=== PATIENT | female | born 1950 | race Caucasian/White ===

== ENCOUNTER → 2017-01-11 | Outpatient (CLI) | payer OTHER ==
[~2017-01-11] MED LIST: ALDACTONE25 MG PO; ASPIRIN ENTERI325 M1 PO; AUGMENTIN875 M1 PO; CELEXA PO; COMBIVENT RESPIM4 GM IH; COZAAR PO; DEMADEX10 MG PO; FAMCICLOVIR500 MG PO; FLEXERIL10 MG PO; FLONASE 0.05% N16 G1; GLUCOVANCE PO; GLYBURIDE-METFO1 TA3 PO; HUMALOG100 U/M1 SQ; KEFLEX500 MG PO; LEVEMIR SUBQ; LIDO PATCH; LIPITOR20 MG PO; LISINOPRIL PO; MACROBID100 M1 PO; NORCO1 TAB 10/3 PO; NORVASC PO; NOVOLOG100 U/M1 SUBQ; OCUFLOX10 ML OD; RYTHMOL PO; SPIRIVA18 MCG PO; SYNTHROID PO; VICODIN 5/500 T1 TAB PO; ZOLOFT50 MG PO
[2017-01-11 11:58] LABS: URINE APPEARANCE CLEAR; URINE BILIRUBIN NEG (NEG); URINE BLOOD NEG (NEG); URINE COLOR YELLOW; URINE GLUCOSE 100 MG/DL (NORM); URINE KETONE NEG (NEG); URINE LEUKOCYTE ESTERASE NEG (NEG); URINE NITRATE NEG (NEG); URINE PROTEIN 3+ (NEG); URINE SOURCE CLEAN CATCH; URINE SPECIFIC GRAVITY 1.015 (1.003-1.035); URINE UROBILINOGEN NORM (NORM)
[2017-01-11 12:46] LABS: BUN/CREATININE RATIO 15.33; CALCIUM SERUM 8.5 mg/dL (8.4-10.2); GLOM FILT RATE Estimated 15.5 mL/min (>60)
[2017-01-11 12:51] LABS: POTASSIUM 5.6 mmol/L (3.5-5.1)
[2017-01-11 21:22] LABS: CREATININE,RANDOM URINE 57 mg/dL; TOTAL PROTEIN,RANDOM URINE 366 mg/dl (<10)
== END | disposition home or self-care (01) ==
LOC: CLAB 10:48
PROVIDERS: Internal Medicine Nephrology
DX: N18.3 Chronic kidney disease, stage 3 (moderate) (principal)
CPT/HCPCS: 36415; 80048; 81003; 82570; 84156

== ENCOUNTER → 2017-01-15 | Outpatient (CLI) | payer OTHER ==
[2017-01-15 12:12] LABS: BUN/CREATININE RATIO 12.33; CALCIUM SERUM 9.2 mg/dL (8.4-10.2); GLOM FILT RATE Estimated 15.5 mL/min (>60); POTASSIUM 5.3 mmol/L (3.5-5.1)
== END | disposition home or self-care (01) ==
LOC: CLAB 09:38
PROVIDERS: Internal Medicine Nephrology
DX: N18.3 Chronic kidney disease, stage 3 (moderate) (principal)
CPT/HCPCS: 36415; 80048

== ENCOUNTER → 2017-02-14 | Outpatient (CLI) | payer OTHER ==
--- NOTE | ~2017-02-14 | US77 ---
[facility] A Service of [facility] & [facility] RADIOLOGY TEXT RESULTS PATIENT: REMI CHRISTY LOCATION: [facility] : 50 UNIT #: [id number] AGE: [address]: Zeb Feng MD SEX: F ORDER DR: [id number] [facility] [address] [place], [place] [address] [id number] O MR#: [id number] Acc #: [id number] NAME: REMI CHRISTY : 1950 SEX: F STUDY DATE/TIME: 02/14/2017 13:03 UNIT: [facility] ROOM: STUDY DESCRIPTION: US Kidney Bilateral Complete Attending Physician: Zeb Feng M.D. Referring Physician: Zeb Feng M.D. Ordering Physician: Zeb Feng M.D. Primary Care Physician: Flor Mukherjee M.D. MEDICAL IMAGING REPORT This report is preliminary unless electronic signature is present EXAM Renal ultrasound. INDICATIONS Chronic kidney disease stage III. TECHNIQUE Jay-scale and color Doppler sonographic images were obtained through the kidneys and bladder. FINDINGS Right kidney measures 7.5 x 4.4 x 3.8 cm, it is echogenic. No obvious hydronephrosis is seen, presence or absence of masses is really not possible on this limited study. There is limited visualization of the bladder; assessment of wall thickness is not possible. Left kidney measures 6.8 x 4.3 x 4.1 cm and I think is probably also echogenic. Again, no hydronephrosis is seen, no obvious masses are identified, but again this is a technically limited study. IMPRESSION Atrophic, echogenic kidneys likely reflecting underlying chronic medical renal disease. No obvious hydronephrosis identified. Please note this is a very technically limited examination with limited views of the bladder and both kidneys. Dictated by... Chloé Chavez M.D. THIS IS AN ELECTRONICALLY VERIFIED REPORT Chloé Chavez M.D. at 02/15/2017 2:45 PM AFF/psc [facility] A Service of [facility] & [facility] RADIOLOGY TEXT RESULTS PATIENT: REMI CHRISTY LOCATION: [facility] : 50 UNIT #: [id number] AGE: [address]: Zeb Feng MD SEX: F ORDER DR: TD: 02/15/2017 08:39 JOB #: [id number] MEDICAL IMAGING REPORT Page 1 of 1 COPY
[2017-02-14 13:51] LABS: BASOPHIL# 0.1 X10e3 (0-0.3); BASOPHIL% 0.8 % (0-2.5); EOSINOPHIL# 0.1 X10e3 (0-0.7); EOSINOPHIL% 1.3 % (0.0-7.0); HEMATOCRIT 35.5 % (35.0-45.0); HEMOGLOBIN 11.5 gm/dL (12.0-16.0); LYMPHOCYTE# 1.5 X10e3 (1.0-3.5); LYMPHOCYTE% 15.8 % (17.0-45.0); MEAN CELL VOLUME 85.8 FL (83-96); MEAN CORPUSCULAR HEMOGLOBIN 27.6 PG (28-34); MEAN CORPUSCULAR HGB CONC 32.2 g/dL (30-36); MEAN PLATELET VOLUME 9.2 FL (6.5-11.5); MONOCYTE# 0.6 X10e3 (0-1.0); MONOCYTE% 6.6 % (3.0-12.0); NEUTROPHIL# 7.2 X10e3 (1.5-7.1); NEUTROPHIL% 75.5 % (40-75); PLATELET COUNT 304 X10e3 (140-420); RED BLOOD COUNT 4.14 X10e (3.90-5.30); RED CELL DISTRIBUTION WIDTH 13.5 % (11.0-15.5); URINE APPEARANCE CLEAR; URINE BILIRUBIN NEG (NEG); URINE BLOOD NEG (NEG); URINE COLOR YELLOW; URINE GLUCOSE 500 MG/DL (NEG); URINE KETONE NEG (NEG); URINE LEUKOCYTE ESTERASE NEG (NEG); URINE NITRATE NEG (NEG); URINE PH 5.5 (5-8); URINE PROTEIN 3+ (NEG); URINE SPECIFIC GRAVITY 1.021 (1.003-1.035); URINE UROBILINOGEN 0.2 MG/DL (NEG); WHITE BLOOD COUNT 9.6 X10e3 (4.0-10.5)
[2017-02-14 13:54] LABS: URINE BACTERIA AUWI NEG (NEGATIVE); URINE SQUAMOUS EPITHELIAL CELL OCC /[HPF]
[2017-02-14 14:00] LABS: DIFF IND NO; URINE SOURCE CLEAN CATCH
[2017-02-14 14:31] LABS: BUN/CREATININE RATIO 11.51; CALCIUM SERUM 9.1 mg/dL (8.4-10.2); CREATININE SERUM 3.3 mg/dL (0.6-1.4); GLOM FILT RATE Estimated 13.8 mL/min (>60); PHOSPHOROUS 5.4 mg/dL (2.5-4.6)
[2017-02-14 14:50] LABS: POTASSIUM 5.5 mmol/L (3.5-5.1)
[2017-02-17 07:41] LABS: CALCIUM (PTHINTACT) 9.2 mg/dL (8.6-10.4)
== END | disposition home or self-care (01) ==
LOC: CGUS 11:58
PROVIDERS: Internal Medicine Nephrology
DX: N18.3 Chronic kidney disease, stage 3 (moderate) (principal); E55.9 Vitamin D deficiency, unspecified; N26.1 Atrophy of kidney (terminal)
CPT/HCPCS: 36415; 76770; 80048; 81003; 82306; 82310; 83970; 84100; 85025